=== PATIENT | male | born 1970 | race Caucasian/White ===

== ENCOUNTER → 2022-11-17 | Day surgery (SDC) | payer OTHER ==
[2022-11-15 16:57] LABS: COVID AG,FIA SOURCE NASAL SWAB
[~2022-11-17] VITALS: Ht 177.8 cm; Wt 81.8 kg
[~2022-11-17] MED LIST: FAMO20 PO; SODIUM CHLORIDE 0.9% 1,000 ML IV ONE; SODIUM CHLORIDE 0.9% 1,000 ML ONE
== END | disposition home or self-care (01) ==
LOC: SURGERY 10:51
PROVIDERS: ATTEND Internal Medicine Gastroenterology
DX: K25.9 Gastric ulcer, unspecified as acute or chronic, without hemorrhage or perforation (principal); Z20.822 Contact with and (suspected) exposure to COVID-19; Z87.11 Personal history of peptic ulcer disease; Z79.899 Other long term (current) drug therapy
CPT/HCPCS: 87426; 43239; 88305; 88312; C9803; C1769; J7030

== ENCOUNTER 2022-12-01 10:59 | Day surgery (SDC) | payer OTHER ==
[~2022-12-01] VITALS: Ht 177.8 cm; Wt 81.8 kg
[~2022-12-01 10:59] MED LIST changes: -SODIUM CHLORIDE 0.9% 1,000 ML IV ONE; -SODIUM CHLORIDE 0.9% 1,000 ML ONE
[2022-12-01] MEDS ORDERED: SODIUM CHLORIDE 0.9% 1,000 ML IV ONE (11:00)
[2022-12-01 11:22] LABS: COVID AG,FIA SOURCE NASAL SWAB
[2022-12-01] MEDS ORDERED: PROPOFOL 1% 20 ML VIAL IVP ONE (12:00)
== END 2022-12-01 16:15 | disposition home or self-care (01) ==
LOC: SURGERY 10:59 → EDUNIT# 13:00 → SURGERY 16:15
PROVIDERS: ATTEND Internal Medicine Gastroenterology
DX: Z12.11 Encounter for screening for malignant neoplasm of colon (principal); K63.5 Polyp of colon; Z20.822 Contact with and (suspected) exposure to COVID-19; Z79.899 Other long term (current) drug therapy
CPT/HCPCS: 45380; 87426; C9803; C1769; J2704